=== PATIENT | female | born 1990 | race Caucasian/White ===

== ENCOUNTER 2018-01-19 20:15 | Emergency (ER) | payer OTHER ==
[~2018-01-19] VITALS: Ht 152.4 cm; Wt 74.8 kg
[~2018-01-19 20:15] MED LIST: CELEXA10 M1 PO; CIPROFLOXIN HC2.5 M1 OPHTHALMIC; NAPROSYN500 MG PO; ONDANSETRON HCL4 M2 PO; PENICILLIN V P500 MG PO; TRAMADOL 50 MG50 MG PO; ULTRAM 50MG TAB50 MG PO
[2018-01-19] MEDS ORDERED: KEFLEX500 M1 PO (20:46)
[2018-01-19] MEDS ORDERED: BACTRIM DS TAB1 EACH PO (20:46)
[2018-01-19] MEDS ORDERED: HYDROCODONE-AP1 EAC6 PO (20:51)
[2018-01-19 21:14] VITALS: BP 114/82
== END 2018-01-19 21:15 | disposition home or self-care (01) ==
LOC: M.ERS 20:15
DX: N36.8 Other specified disorders of urethra (principal); F17.210 Nicotine dependence, cigarettes, uncomplicated; Z98.890 Other specified postprocedural states

== ENCOUNTER 2018-01-21 20:33 | Emergency (ER) | payer OTHER ==
[~2018-01-21] VITALS: Ht 154.9 cm; Wt 70.3 kg
[~2018-01-21 20:33] MED LIST changes: +BACTRIM DS TAB1 EACH PO; +HYDROCODONE-AP1 EAC6 PO; +KEFLEX500 M1 PO
[2018-01-21 21:08] VITALS: BP 119/68
== END 2018-01-21 21:14 | disposition home or self-care (01) ==
LOC: M.ERS 20:33
DX: N76.4 Abscess of vulva (principal); F17.210 Nicotine dependence, cigarettes, uncomplicated; Z98.890 Other specified postprocedural states

== ENCOUNTER 2018-04-21 21:01 | Emergency (ER) | payer MEDICAID ==
[~2018-04-21] VITALS: Ht 154.9 cm; Wt 77.1 kg
[2018-04-21 21:48] LABS: URINE BILIRUBIN NEGATIVE (Negative); URINE BLOOD NEGATIVE (Negative); URINE CLARITY CLEAR; URINE COLOR YELLOW; URINE GLUCOSE-RANDOM NEGATIVE (Negative); URINE KETONES NEGATIVE (Negative); URINE LEUKOCYTES-REFLEX NEGATIVE (Negative); URINE NITRITE-REFLEX NEGATIVE (Negative); URINE PROTEIN TRACE (Negative); URINE SPECIFIC GRAVITY >= 1.030 (1.005-1.030); URINE UROBILINOGEN 0.2 E.U./dl (0.2-1.0)
[2018-04-21 21:54] LABS: ABSOLUTE BASOPHILS 0.1 thou/uL (0.0-0.2); ABSOLUTE EOSINOPHILS 0.1 thou/uL (0.0-0.7); ABSOLUTE LYMPHOCYTES 2.1 thou/uL (0.8-5.3); ABSOLUTE MONOCYTES 0.7 thou/uL (0.0-1.2); ABSOLUTE NEUTROPHILS 8.6 thou/uL (1.6-8.1); BASOPHILS 0.8 %; EOSINOPHILS 0.7 %; HEMATOCRIT 42.1 % (37.0-47.0); HEMOGLOBIN 14.3 gm/dL (12.0-15.0); LYMPHOCYTES 18.1 %; MCH 30.6 pg (26.0-34.0); MCV 90.3 fL (80.0-100.0); MONOCYTES 6.4 %; MPV 7.7 fl. (7.2-11.1); NUCLEATED RBCS 0 /100WBC; PLATELET COUNT* 253 thou/uL (150-400); RBC 4.66 mil/uL (4.20-5.00); RDW-CV 12.8 % (10.5-14.5); WBC 11.6 thou/uL (4.0-11.0)
[2018-04-21 22:02] LABS: CALCIUM 8.8 mg/dL (8.5-10.1); CREATININE 0.6 mg/dL (0.6-1.3); POTASSIUM 3.6 mmol/L (3.5-5.1)
[2018-04-21 22:07] LABS: ALBUMIN 3.8 g/dL (3.4-5.0); TOTAL BILIRUBIN 0.5 mg/dL (<0.1-1.0); TOTAL PROTEIN 7.3 g/dL (6.4-8.2)
[2018-04-22] MEDS ORDERED: CLEOCIN HCL300 MG PO (00:30)
[2018-04-22 01:08] VITALS: BP 125/75
== END 2018-04-22 01:09 | disposition home or self-care (01) ==
LOC: M.ERS 21:01
PROVIDERS: Nurse Practitioner Family
DX: O23.591 Infection of other part of genital tract in pregnancy, first trimester (principal); B96.89 Other specified bacterial agents as the cause of diseases classified elsewhere; K59.00 Constipation, unspecified; F17.210 Nicotine dependence, cigarettes, uncomplicated; Z98.890 Other specified postprocedural states; Z3A.01 Less than 8 weeks gestation of pregnancy

== ENCOUNTER 2019-06-06 15:42 | Emergency (ER) | payer MEDICAID, OTHER ==
[~2019-06-06] VITALS: Ht 157.5 cm; Wt 65.8 kg
[~2019-06-06 15:42] MED LIST changes: +CLEOCIN HCL300 MG PO
[2019-06-06 15:59] LABS: URINE BILIRUBIN NEGATIVE (Negative); URINE BLOOD 3+ (Negative); URINE CLARITY CLEAR; URINE COLOR YELLOW; URINE GLUCOSE-RANDOM NEGATIVE (Negative); URINE KETONES TRACE (Negative); URINE LEUKOCYTES-REFLEX NEGATIVE (Negative); URINE NITRITE-REFLEX NEGATIVE (Negative); URINE PROTEIN NEGATIVE (Negative); URINE SPECIFIC GRAVITY 1.025 (1.005-1.030); URINE UROBILINOGEN 0.2 E.U./dl (0.2-1.0)
[2019-06-06 16:06] LABS: SQUAMOUS >10 Many /LPF (0-3)
[2019-06-06 16:08] LABS: BACTERIA-REFLEX >30 Many /HPF (None Seen); CASTS None Seen /LPF (None Seen); CRYSTALS None Seen /LPF (None Seen); MUCUS 0-3 Light strn/LPF (None Seen); URINE RBC 0-2 Rare /HPF (0-2); URINE WBC-REFLEX None Seen /HPF (0-5)
[2019-06-06 16:15] LABS: ABSOLUTE EOSINOPHILS 0.3 thou/uL (0.0-0.7); ABSOLUTE LYMPHOCYTES 0.8 thou/uL (0.8-5.3); ABSOLUTE MONOCYTES 0.4 thou/uL (0.0-1.2); ABSOLUTE NEUTROPHILS 5.7 thou/uL (1.6-8.1); BASOPHILS 0.5 %; HEMATOCRIT 43.3 % (37.0-47.0); HEMOGLOBIN 15.1 gm/dL (12.0-15.0); LYMPHOCYTES 10.7 %; MCH 29.9 pg (26.0-34.0); MCHC 34.8 g/dL (28.0-37.0); MCV 85.9 fL (80.0-100.0); MPV 7.3 fl. (7.2-11.1); NUCLEATED RBCS 0 /100WBC; PLATELET COUNT* 243 thou/uL (150-400); POLYS 78.8 %; RBC 5.04 mil/uL (4.20-5.00); RDW-CV 12.7 % (10.5-14.5); WBC 7.3 thou/uL (4.0-11.0)
[2019-06-06 16:29] LABS: CALCIUM 8.5 mg/dL (8.5-10.1); CREATININE 0.7 mg/dL (0.6-1.3); POTASSIUM 3.6 mmol/L (3.5-5.1)
[2019-06-06 16:35] LABS: ALBUMIN 3.6 g/dL (3.4-5.0); TOTAL BILIRUBIN 0.6 mg/dL (<0.1-1.0); TOTAL PROTEIN 7.3 g/dL (6.4-8.2)
[2019-06-06] MEDS ORDERED: CIPROFLOXACIN500 M1 PO (17:35)
[2019-06-06] MEDS ORDERED: FLAGYL500 M1 PO (17:35)
[2019-06-06] MEDS ORDERED: NORCO 5-325 TA1 EAC1 PO (17:35)
[2019-06-06] MEDS ORDERED: ZOFRAN ODT4 MG SUBLING (17:35)
[2019-06-06 17:46] VITALS: BP 112/66
--- NOTE | 2019-06-07 18:00 | EKG ---
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: : 1990 Requested By: Jose Daniel Pereyra Order Number: [id number] MD: Clemente Tilley Measurements Intervals [place] Rate: 108 P: 47 AK: 120 QRS: 11 QRSD: 81 T: 27 QT: 301 QTc: 404 Interpretive Statements Sinus tachycardia RSR' in V1 or V2, right VCD or RVH Probable anteroseptal infarct, old No previous ECG available for comparison Electronically Signed On 06-07-2019 18:00:25 CDT by Clemente Tilley [email or web address] <ELECTRONICALLY SIGNED> By: Lana Tilley MD, [facility] 06/07/19 1800 1604 160 Lana Tilley MD, [facility] /EPI
== END 2019-06-06 17:47 | disposition home or self-care (01) ==
LOC: M.ERS 15:42
PROVIDERS: Family Medicine
DX: K52.9 Noninfective gastroenteritis and colitis, unspecified (principal); F17.210 Nicotine dependence, cigarettes, uncomplicated; Z98.890 Other specified postprocedural states